=== PATIENT | female | born 1980 | race Caucasian/White ===

== ENCOUNTER → 2016-04-10 | Outpatient (CLI) | payer OTHER ==
--- NOTE | 2016-04-10 12:02 | US ---
April 10, [address] Mireles, Thank you for allowing us to see your patient regarding AMA. As you know she is a 35 year-old gravid a 4, para 2011. Her due date is 08/31/16 which is based on . Her current gestational age based on this dating is 19 weeks 4 days. She had normal NIPT and AFP. Number of fetuses: 1 Placental location: posterior Cord Insertion: Central presentation: breech Cervix: 4.3 cm MVP: 4.2 cm The adnexa were evaluated. No pathology was seen. Right ovary not well seen Left ovary seen Measurements: Biparietal diameter: 44 mm 19 weeks, 2 days Head circumference: 173 mm 19 weeks, 6 days Abdominal circumference: 143 mm 19 weeks, 5 days Femur length: 33 mm 20 weeks, 2 days Humerus length: 34 mm 21 weeks, 3 days Transcerebellar diameter: 20 mm 19 weeks, 3 days Average ultrasound age: 19 weeks, 6 days Estimated weight: 320 gm weight percentile: 65 % ANATOMY Upper extremities: Normal Lower extremities: Normal Supratentorial brain: Normal Lateral ventricle: 5.1 mm Posterior fossa: Normal Cisterna Magna: 3.9 mm Spine: Normal, sacral spine reassuring in transverse Nuchal fold: 4.0 mm Face: Normal nose, lip, profile, alveolar ridge Heart: Normal rate, rhythm, axis, 4 chamber view, LVOT, RVOT, IVS Stomach: Normal Diaphragm Normal Umbilical cord insertion: Normal Right kidney: Normal Left kidney: Normal Bladder: Normal Number of cord vessels: Three. Impression: This is a 35 year-old, 4, para 2011 at 19 weeks, 4 days gestation. 1. SIUP with biometry cw ga of 19 weeks. Nl MVP. No anatomic abnormalities noted. 2. AMA - normal NIPT, I reviewed the detection rate and chromosomes for NIPT and the option of amnioc entesis as well. She declined amniocentesis today, understanding the limitations of NIPT and ultrasou nd in detection of aneuploidy and other syndromes. Thank you for allowing me to see your patient. Approximately 15 minutes was spent with the patient a nd 15 was spent discussing her issues. Nika Marie MD Diagnosis Division of Maternal Medicine Department of Obstetrics and Gynecology [facility]
--- NOTE | 2016-04-10 18:21 | US ---
Ultrasound Obstetric Detailed Evaluation Indication: Advanced maternal age. The estimated gestational age by LMP is 19 weeks and 4 days ian reyes an EDC of August 31, 2016 Comparison: None. Findings: Number: 1 Presentation: Breech Placental location: Posterior Cervix: 4.3 cm MVP: 4.2 cm heart rate: 144 bpm. Left ovary measures 1.8 x 1.4 x 1.3 cm. Right ovary not visualized Biometry: Biparietal diameter: 43.79 mm 19 weeks, 2 days Head circumference: 172.91 mm 19 weeks, 6 days Abdominal circumference: 143.30 mm 19 weeks, 5 days Femur length: 32.70 mm 20 weeks, 2 days Humerus length: 33.59 mm 21 weeks, 3 days Transcerebellar diameter: 20.25 mm 19 weeks, 3 days HC/AC: 1.21 (1.09 - 1.26) FL/BPD: 75% FL/AC: 23% Average ultrasound age: 19 weeks, 6 days EDC based on today's average ultrasound age: August 30, 2015 Estimated weight is 320 gms +/- 47 gms. The estimated weight is at the 65 % based on previous dating. ANATOMY SURVEY: Supratentorial brain: Normal Posterior fossa: Normal Spine: Normal Nuchal fold: Normal Nose and lips: Normal Facial profile: Normal Heart: Four chamber heart. 144 bpm. Intact intraventricular septum. Cardiac outflow tracts: Normal Stomach: Normal Umbilical cord insertion: Normal Kidneys: Normal, no pyelectasis Bladder: Normal Number of cord vessels: Three Upper extremities: Visualized Lower extremities: Visualized. Impression: 1. Living rodriguez in breech presentation. 2. Size concordant with dates. 3. No overt anomalies detected. 4. Please see Dr. Nika Marie's consult and recommendations.
== END ==
LOC: FIMAGING 10:24
PROVIDERS: ATTEND Obstetrics & Gynecology
DX: O09.522 Supervision of elderly multigravida, second trimester (principal); Z3A.19 19 weeks gestation of pregnancy

== ENCOUNTER 2016-08-07 04:00 | Inpatient (IN) | payer OTHER ==
[2016-08-07] MEDS ORDERED: LR 1,000 ML IV PRN (04:08)
[2016-08-07] MEDS ORDERED: EPSOM SALT 454 GM TP PRN (04:08)
[2016-08-07] MEDS ORDERED: OXYTOCIN/RINGERS LACTATE 1,000 ML IV PRN (04:08)
[2016-08-07] MEDS ORDERED: AMPICILLIN SODIUM 2 GM in NS 100 ML IV ONE (04:08)
[2016-08-07] MEDS ORDERED: OLIVE OIL 118 ML BTL MISC PRN (04:08)
[2016-08-07] MEDS ORDERED: LIDOCAINE 1% 30 ML SDV SC PRN (04:08)
[2016-08-07] MEDS ORDERED: TERBUTALINE SULFATE 1 MG/ML VIAL IV PRN (04:08)
[2016-08-07] MEDS ORDERED: OLIVE OIL 118 ML BTL ONE (04:22)
[2016-08-07] MEDS ORDERED: LIDOCAINE 1% 30 ML SDV ONE (04:22)
[2016-08-07] MEDS ORDERED: OXYTOCIN 10 UNIT/ML VIAL ONE (04:23)
[2016-08-07] MEDS ORDERED: AMMONIA AROMATIC 1 EACH AMP IH ONE (04:23)
[2016-08-07] MEDS ORDERED: TERBUTALINE SULFATE 1 MG/ML VIAL ONE (04:23)
[2016-08-07] MEDS ORDERED: MISOPROSTOL 200 MCG TAB ONE (04:23)
[2016-08-07 05:15] LABS: % IMMATURE GRANULYOCYTES 0.6 % (0.0-1.1); ABSOLUTE IMMATURE GRANULOCYTES 0.07 10^3/uL (0.00-0.10); ADD DIFF? NO; ADD MORPH? NO; ADD SCAN? NO; ATYPICAL LYMPHOCYTE FLAG 0 (0-99); FRAGMENT RBC FLAG 0 (0-99); HEMATOCRIT 33.4 % (38.0-47.0); HEMOGLOBIN 11.3 g/dL (12.6-16.3); LEFT SHIFT FLG 0 (0-99); LIPEMIA HEMOLYSIS FLAG 90 (0-99); MEAN CELL HEMOGLOBIN 30.8 pg (27.9-34.1); MEAN CELL HEMOGLOBIN CONCENTR. 33.8 g/dL (32.4-36.7); MEAN PLATELET VOLUME 9.7 fL (8.7-11.7); PLATELET CLUMPS FLAG 0 (0-99); PLATELET COUNT 217 10^3/uL (150-400); RED BLOOD CELL COUNT 3.67 10^6/uL (4.18-5.33); RED CELL DISTRIBUTION WIDTH 14.3 % (11.5-15.2)
[2016-08-07] MEDS ORDERED: fentaNYL 2MCG/ML/BUP 0.1% RTU 100 ML BAG EP ONE (05:56)
[2016-08-07] MEDS ORDERED: BUPIVACAINE 0.25% 30 ML SDV ONE (05:57)
[2016-08-07] MEDS ORDERED: PHENYLEPHRINE HCL 100 MCG/ML SYR ONE (05:57)
[2016-08-07] MEDS ORDERED: fentaNYL 100 MCG/2 ML INJ ONE (05:57)
[2016-08-07] MEDS ORDERED: PHENYLEPHRINE HCL 100 MCG/ML SYR IVP PRN (07:29)
[2016-08-07] MEDS ORDERED: ONDANSETRON 4 MG/2 ML VIAL IVP PRN (07:29)
[2016-08-07] MEDS ORDERED: fentaNYL 2MCG/ML/BUP 0.1% RTU 100 ML EP SCH (07:30)
[2016-08-07] MEDS ORDERED: LR 500 ML IV SCH (07:30)
--- NOTE | 2016-08-07 07:33 | PREANESOB ---
Obstetric Pre-Anesthesia Info - General Info Proposed Procedure: Labor and delivery : 4 Para: 2 WBD: 36 - Info Status: Premature Monitors: External FHR Baseline (bpm): 140 FHR Pattern: Reassuring - Labor Status Indications for Labor Analgesia: Pain Control Labor Epidural: Proposed Anesthesia ROS: Prior labor epidural. Allergies/Adverse Reactions: Allergy/AdvReac Type Severity Reaction Status Date / Time No Known Allergies Allergy Verified 08/07/16 04:08 Visit Medications: Generic Name Dose Route Start Last Admin Trade Name Freq PRN Reason Stop Dose Admin Ampicillin Sodium 1 gm/ Sodium 100 mls @ 200 mls/hr 08/07/16 08:09 Chloride IV 09/06/16 08:08 Q4H THAO Protocol Lactated Ringer's 1,000 mls @ 0 mls/hr 08/07/16 04:08 08/07/16 05:31 Lr IV 02/03/17 04:07 1,000 mls PRN PRN Administration SEE PROTOCOL CONDITIONS Protocol Per Protocol Oxytocin/Lactated Ringer's 1,000 mls @ 150 mls/hr 08/07/16 04:08 Pitocin 20 Units/Lr (Premix) IV PRN PRN Post- bleeding Ibuprofen 600 mg 08/07/16 04:08 Motrin PO 02/03/17 04:07 Q6HRS PRN post , inflammation Lidocaine HCl 30 ml 08/07/16 04:08 Lidocaine Hcl 1% SC 02/03/17 04:07 ONCE PRN Episiotomy Magnesium Sulfate 454 gm 08/07/16 04:08 Epsom Salt TP 02/03/17 04:07 PRN PRN perineal discomfort [place] Oil 118 ml 08/07/16 04:08 Sweet Oil MISC 02/03/17 04:07 ONCE PRN preneal massage Terbutaline Sulfate 0.25 mg 08/07/16 04:08 Brethine IV 02/03/17 04:07 ONCE PRN Tachysystole Discontinued Medications Generic Name Dose Route Start Last Admin Trade Name Freq PRN Reason Stop Dose Admin Ammonia (Aromatic Spirit) Confirm 08/07/16 04:23 Ammonia Aromatic Administered 08/07/16 04:24 Dose 1 each IH .STK-MED ONE Bupivacaine HCl Confirm 08/07/16 05:57 Sensorcaine 0.25% Sdv Administered 08/07/16 05:58 Dose 30 ml .ROUTE .STK-MED ONE Ephedrine Sulfate Confirm 08/07/16 04:23 Ephedrine Sulfate Administered 08/07/16 04:24 Dose 50 mg .ROUTE .STK-MED ONE Fentanyl Confirm 08/07/16 05:57 Sublimaze Administered 08/07/16 05:58 Dose 100 mcg .ROUTE .STK-MED ONE Fentanyl/Bupivacaine HCl Confirm 08/07/16 05:56 Fentanyl/Bupivacaine/Ns 2 Mcg/Ml 0.1% (Premix Administered 08/07/16 05:57 Dose 100 ml EP .STK-MED ONE Ampicillin Sodium 2 gm/ Sodium 110 mls @ 220 mls/hr 08/07/16 04:08 08/07/16 05:32 Chloride IV 08/07/16 04:37 110 mls ONCE ONE Administration Protocol Lidocaine HCl Confirm 08/07/16 04:22 Lidocaine Hcl 1% Administered 08/07/16 04:23 Dose 30 ml .ROUTE .STK-MED ONE Misoprostol Confirm 08/07/16 04:23 Cytotec Administered 08/07/16 04:24 Dose 1,000 mcg .ROUTE .STK-MED ONE [place] Oil Confirm 08/07/16 04:22 Sweet Oil Administered 08/07/16 04:23 Dose 118 ml .ROUTE .STK-MED ONE Oxytocin Confirm 08/07/16 04:23 Pitocin Administered 08/07/16 04:24 Dose 30 unit .ROUTE .STK-MED ONE Phenylephrine HCl Confirm 08/07/16 05:57 [place]-Synephrine Administered 08/07/16 05:58 Dose 1,000 mcg .ROUTE .STK-MED ONE Terbutaline Sulfate Confirm 08/07/16 04:23 Brethine Administered 08/07/16 04:24 Dose 1 mg .ROUTE .STK-MED ONE - Anesthesia History Response to Local Anesthetics: Normal Anesthesia & Operative History: No Prior Problems Family Anesthesia History: Not Applicable - Social History Substance Use/Abuse: Denies - Focused Exam Blood Pressure: 104/63 Heart Rate: 65 Respiratory Rate: 16 Height/Weight (Nursing): Height 175.26 cm Weight 83.915 kg Physical Exam: Within normal limits. ASA Status: II Labs: 08/07/16 04:35 Patient ABO/Rh A POSITIVE 08/07/16 04:35 - Plan Anesthetic Plan: CSE Consent Signed and on Chart: Yes Patient/Guardian Understands and Agrees to Plan: Yes
--- NOTE | 2016-08-07 07:38 | PDGENHP ---
History and Physical - Chief Complaint 35 y.o. at 36 4/7 weeks with PROM - History of Present Illness 35 y.o. at 36 4/7 weeks with PROM. VSS- afebrile. NST- reactive CAT I. GBS unknown and will treat. History Information - Allergies/Home Medication List Allergies/Adverse Reactions: No Known Allergies Allergy (Verified 08/07/16 04:08) I have personally reviewed and updated: family history, medical history, social history, surgical history - Past Medical History Additional medical history: anxiety - Surgical History Reports: no pertinent surgical hx - Family History Positive for: cancer - Social History Smoking Status: Never smoked Alcohol Use: None Drug Use: None Review of Systems ROS: 10pt was reviewed & negative except for what was stated in HPI & below Constitutional: Reports: no symptoms EENMT: Reports: no symptoms Cardiac: Reports: no symptoms Respiratory: Reports: no symptoms Gastrointestinal: Reports: no symptoms Genitourinary: Reports: no symptoms Muscolosketal: Reports: no symptoms Skin: Reports: no symptoms Neurological: Reports: no symptoms Hematologic/Lymphatic: Reports: no symptoms Immunologic/Allergy: Reports: no symptoms Physical Exam Temp Pulse Resp BP Pulse Ox 65 16 104/63 08/07/16 07:33 08/07/16 07:33 08/07/16 07:33 Lab Data & Imaging Review 08/07/16 04:35 WBC 12.27 10^3/uL (3.80-9.50) H 08/07/16 04:35 RBC 3.67 10^6/uL (4.18-5.33) L 08/07/16 04:35 Hgb 11.3 g/dL (12.6-16.3) L 08/07/16 04:35 Hct 33.4 % (38.0-47.0) L 08/07/16 04:35 MCV 91.0 fL (81.5-99.8) 08/07/16 04:35 MCH 30.8 pg (27.9-34.1) 08/07/16 04:35 MCHC 33.8 g/dL (32.4-36.7) 08/07/16 04:35 RDW 14.3 % (11.5-15.2) 08/07/16 04:35 Plt Count 217 10^3/uL (150-400) 08/07/16 04:35 MPV 9.7 fL (8.7-11.7) 08/07/16 04:35 Neut % (Auto) 71.5 % (39.3-74.2) 08/07/16 04:35 Lymph % (Auto) 19.5 % (15.0-45.0) 08/07/16 04:35 Centre % (Auto) 7.3 % (4.5-13.0) 08/07/16 04:35 Eos % (Auto) 0.7 % (0.6-7.6) 08/07/16 04:35 Baso % (Auto) 0.4 % (0.3-1.7) 08/07/16 04:35 Nucleat RBC Rel Count 0.0 % (0.0-0.2) 08/07/16 04:35 Absolute Neuts (auto) 8.77 10^3/uL (1.70-6.50) H 08/07/16 04:35 Absolute Lymphs (auto) 2.39 10^3/uL (1.00-3.00) 08/07/16 04:35 Absolute Monos (auto) 0.90 10^3/uL (0.30-0.80) H 08/07/16 04:35 Absolute Eos (auto) 0.09 10^3/uL (0.03-0.40) 08/07/16 04:35 Absolute Basos (auto) 0.05 10^3/uL (0.02-0.10) 08/07/16 04:35 Absolute Nucleated RBC 0.00 10^3/uL (0-0.01) 08/07/16 04:35 Immature Gran % 0.6 % (0.0-1.1) 08/07/16 04:35 Immature Gran # 0.07 10^3/uL (0.00-0.10) 08/07/16 04:35 Patient ABO/Rh A POSITIVE 08/07/16 04:35 Antibody Screen NEGATIVE 08/07/16 04:35
--- NOTE | 2016-08-07 07:38 | POSTANESTH ---
Post Anesthetic Evaluation Cardiovascular Status: Normal, Stable Respiratory Status: Normal, Stable, Similar to Pre-op Cond. Level of Consciousness/Mental Status: Can Participate in Eval, Alert and Oriented (Tolerated CSE well, stable, comfortable.) Pain Control: Adequate, Prn Tx Ordered Nausea/Vomiting Control: Adequate, Prn Tx Ordered Complications Possibly Related to Anesthesia: None Noted
--- NOTE | 2016-08-07 07:42 | OBPROG ---
OBG Progress Note Assessment/Plan: Assessment: 35 y.o. at 36 4/7 weeks for PROM. KAYKAY given early per patient request. Plan: Admit to L&D. KAYKAY per patient request. Begin pitocin for augmentation of labor. 08/07/16 07:39 Subjective: Appear comfortable to present at bedside. KAYKAY infusing. Discussed augmentation of labor with pitocin and patient agreed. Objective: 08/07/16 04:35 Patient ABO/Rh A POSITIVE 08/07/16 04:35 Temp Pulse Resp BP Pulse Ox 65 16 104/63 08/07/16 07:33 08/07/16 07:33 08/07/16 07:33 Current Contraction Pattern: Irregular FHR (bpm): 140 FHR Pattern Variability: Moderate FHR Category: 1 Membranes: SROM Amniotic Fluid Color: Clear - Physical Exam General Appearance: WD/WN, alert, no apparent distress Estimated Weight: 2501-3400g EENT: normal ENT inspection Neck: non-tender, full range of motion, normal inspection Respiratory: lungs clear, normal breath sounds Cardiac/Chest: regular rate, rhythm Abdomen: normal bowel sounds, non-tender, soft Membranes: SROM Amniotic Fluid Color: clear Extremities: normal range of motion, non-tender, normal inspection Back: Normal inspection Skin: normal color, warm/dry Neuro/Psych: alert, normal mood/affect, oriented x 3 ICD10 Worksheet Patient Problems: Problems Problem Status Onset Uterine contractions Acute
[2016-08-07] MEDS ORDERED: OXYTOCIN/RINGERS LACTATE 500 ML IV SCH (08:30)
[2016-08-07] MEDS: AMPICILLIN SODIUM 1 GM in NS 100 ML IV SCH ×2 (09:25→18:18)
[2016-08-07] MEDS ORDERED: ACETAMINOPHEN 500 MG TAB PO ONE (10:27)
--- NOTE | 2016-08-07 10:30 | OBPROG ---
OBG Progress Note Assessment/Plan: Assessment: 35 y.o. at 36 4/7 weeks for PROM. KAYKAY given early per patient request. GBS unknown. VSS- afebrile NST-reactive +SROM with clear fluid. Plan: Admit to L&D. KAYKAY per patient request. Continue pitocin for induction of labor. GBS prophylaxis with 2nd dose of Amp administered. 08/07/16 07:39 08/07/16 10:27 Subjective: Reports feeling increased cramping/ discomfort with uterine contraction. Nurse noted difficulty tracing uterine contractions. Discussed with patient IUPC placement and patient agreed and was placed. Objective: 08/07/16 04:35 Patient ABO/Rh A POSITIVE 08/07/16 04:35 Temp Pulse Resp BP Pulse Ox 65 16 104/63 08/07/16 07:33 08/07/16 07:33 08/07/16 07:33 - SVE Dilation (cm): 3 Effacement (%): 75 Station: -2 Current Contraction Pattern: Regular FHR (bpm): 140 FHR Pattern Variability: Moderate FHR Category: 1 Membranes: SROM Amniotic Fluid Color: Clear - Physical Exam General Appearance: WD/WN, alert Estimated Weight: 2501-3400g EENT: normal ENT inspection Neck: non-tender, full range of motion, normal inspection Respiratory: lungs clear, normal breath sounds Cardiac/Chest: regular rate, rhythm Abdomen: non-tender, soft Membranes: SROM Amniotic Fluid Color: clear Extremities: normal range of motion, non-tender Back: Normal inspection Skin: normal color, warm/dry Neuro/Psych: alert, normal mood/affect, oriented x 3 ICD10 Worksheet Patient Problems: Problems Problem Status Onset Uterine contractions Acute
[2016-08-07] MEDS ORDERED: ACETAMINOPHEN 325 MG TAB PO PRN (11:48)
[2016-08-07] MEDS ORDERED: HYDROCORTISONE 0.5% CREAM TP PRN (11:48)
[2016-08-07] MEDS ORDERED: SIMETHICONE 80 MG TAB CHEW PO PRN (11:48)
[2016-08-07] MEDS ORDERED: HYDROCODONE/APAP 5/325 TAB PO PRN (11:48)
--- NOTE | 2016-08-07 11:51 | OBPROC ---
- Labor and Delivery Onset of Contractions Date: 08/07/16 Onset of Contractions Time: 08:45 Onset of Contractions Type: Augmented Rupture of Membranes Date: 08/07/16 Rupture of Membranes Time: 02:30 Rupture of Membranes Type: Spontaneous Amniotic Fluid Color: Clear Dilation Complete Time: 11:10 Delivery Type: Spontaneous Placenta Delivery Date: 08/07/16 Placenta Delivery Time: 11:37 EBL: 100 Complications: None - Medications Labor Augmentation/Induction Meds Used: Pitocin Anesthesia: Epidural - [place] Info Infant A Delivery Date: 08/07/16 Delivery Time: 11:33 Sex of Infant: Female Score (1 Min): 8 Score (5 Min): 9
[2016-08-07] MEDS: IBUPROFEN 600 MG TAB PO PRN ×2 (12:03→18:08)
[2016-08-08] MEDS: IBUPROFEN 600 MG TAB PO PRN ×4 (00:05→18:47)
[2016-08-08 06:11] LABS: % IMMATURE GRANULYOCYTES 0.5 % (0.0-1.1); ABSOLUTE IMMATURE GRANULOCYTES 0.05 10^3/uL (0.00-0.10); ADD DIFF? NO; ADD MORPH? NO; ADD SCAN? NO; ATYPICAL LYMPHOCYTE FLAG 0 (0-99); FRAGMENT RBC FLAG 0 (0-99); HEMATOCRIT 30.5 % (38.0-47.0); HEMOGLOBIN 10.5 g/dL (12.6-16.3); LEFT SHIFT FLG 0 (0-99); LIPEMIA HEMOLYSIS FLAG 90 (0-99); MEAN CELL HEMOGLOBIN 31.5 pg (27.9-34.1); MEAN CELL HEMOGLOBIN CONCENTR. 34.4 g/dL (32.4-36.7); MEAN CELL VOLUME 91.6 fL (81.5-99.8); MEAN PLATELET VOLUME 9.4 fL (8.7-11.7); PLATELET CLUMPS FLAG 0 (0-99); PLATELET COUNT 182 10^3/uL (150-400); RED BLOOD CELL COUNT 3.33 10^6/uL (4.18-5.33); RED CELL DISTRIBUTION WIDTH 14.2 % (11.5-15.2)
--- NOTE | 2016-08-08 09:12 | SOAPPROG ---
SOAP Progress Note Assessment/Plan: Assessment: s/p at 36w4d Recovering appropriately Plan: Routine care Repeat vitals this AM, had low BP overnight but is asymptomatic with appropriate lochia Discussed consider pelvic PT for rectus diastasis after 6 weeks 08/08/16 09:11 Subjective: Feeling well. Baby is latching. No heavy bleeding. Normal mood. No concerns. Her and 2-yr old will be back shortly. Denies dizziness or lightheadedness, ambulating to bathroom, voiding normally, tolerating regular diet Objective: Vital Signs Temp Pulse Resp BP Pulse Ox 36.8 C 72 12 72/59 L 95 08/07/16 20:00 08/07/16 20:00 08/07/16 20:00 08/07/16 20:00 08/07/16 16:00 Laboratory Results 08/08/16 06:00 08/07/16 08/08/16 08/09/16 05:59 05:59 05:59 Intake Total 2000 Output Total 1400 Balance 600 Gen: NAD Resp: unlabored CV: RRR Abd: moderately distended, soft, nontender, uterus firm below U, small rectus diastasis Ext: no edema ICD10 Worksheet Patient Problems: Problems Problem Status Onset Vaginal delivery Acute Uterine contractions Acute - ICD10 Problem Qualifiers (1) Vaginal delivery
[2016-08-08] MEDS: DOCUSATE SODIUM 100 MG CAP PO PRN ×2 (09:53→19:58)
[2016-08-08 10:08] VITALS: RESP 16
[2016-08-08 20:56] VITALS: TEMP 98.3
[2016-08-09] MEDS: IBUPROFEN 600 MG TAB PO PRN ×2 (01:26→08:31)
[2016-08-09] MEDS: DOCUSATE SODIUM 100 MG CAP PO PRN (08:31)
--- NOTE | 2016-08-09 08:41 | OBPROG ---
OBG Progress Note Assessment/Plan: Assessment: 35 y/o A1 female PPD#2 s/p - doing well, no complaints Plan: 1) Discharge home 2) RI/RH+ 3) F/U in 6 weeks or sooner prn 08/09/16 08:41 Subjective: Pt feeling well, lochia diminishing, no complaints, ready for discharge. Objective: 08/08/16 06:00 Patient ABO/Rh A POSITIVE 08/07/16 04:35 Temp Pulse Resp BP Pulse Ox 36.8 C 74 16 102/52 L 95 08/08/16 20:00 08/08/16 20:00 08/08/16 20:00 08/08/16 20:00 08/08/16 20:00 Uterine Position/Fundal Height: Umbilicus -1 Uterine Tone: Firm - Physical Exam Estimated Weight: 2501-3400g ICD10 Worksheet Patient Problems: Problems Problem Status Onset Vaginal delivery Acute Uterine contractions Acute
[2016-08-09 10:37] VITALS: BP 110/92; PULSE 69; O2SAT 97
== END 2016-08-09 12:45 | disposition home or self-care (01) | DRG 775 ==
LOC: FLD 04:00 → OBSVTOIN 04:00 → FOB 13:00
PROVIDERS: ADMIT Midwife; ATTEND Obstetrics & Gynecology
PROC: 10E0XZZ Delivery of Products of Conception, External Approach (ICD-10-PCS; principal; 2016-08-07)
DX: O42.013 Preterm premature rupture of membranes, onset of labor within 24 hours of rupture, third trimester (principal); O60.14X0 Preterm labor third trimester with preterm delivery third trimester, not applicable or unspecified; Z3A.36 36 weeks gestation of pregnancy; Z37.0 Single live birth
CPT/HCPCS: J0290; J2370; J2590; J3010; J3105